=== PATIENT | male | born 1940 | race Caucasian/White ===

== ENCOUNTER 2018-02-27 17:04 | Inpatient (IN) | payer MEDICARE, OTHER ==
[~2018-02-27] VITALS: Ht 167.6 cm; Wt 102.5 kg
[~2018-02-27 17:04] MED LIST: ASPIRIN 81M81 MG/TA2 PO; CEPHALEXIN500 M1 PO; CIPRO 500MG TA500 MG PO; CREON 60000 U-11 ECC PO; IBU400 MG PO; PRILOSEC 20MG20 MG PO; PROZAC 10MG10 MG PO; TOPROL XL 50MG50 MG PO
[2018-02-27] MEDS ORDERED: THE MEDICINE S200 M2 PO (17:45)
[2018-02-27] MEDS ORDERED: OMEGA-3 1000 MG1 CAP PO (17:45)
[2018-02-27 18:15] LABS: ALBUMIN 4.1 gm/dL (3.5-5.0); BILIRUBIN,TOTAL 1.5 mg/dL (0.0-1.0); CREATININE, serum 1.33 mg/dL (0.66-1.25); POTASSIUM 3.7 mmol/L (3.4-5.0); TOTAL PROTEIN 7.3 gm/dL (6.4-8.2)
[2018-02-27 18:24] LABS: BASO % 0.4 % (0.0-2.0); GRAN # 8.8 (1.4-6.5); GRAN % 80.4 % (42.2-75.2); HEMATOCRIT 40.2 % (42.0-52.0); HEMOGLOBIN 13.4 g/dl (13.5-18.0); LYMPH # 0.8 (1.2-3.4); LYMPH % 7.6 % (20.0-51.0); MEAN CELL VOLUME 95 fl (80.0-100.0); MEAN CORPUSCULAR HEMOGLOBIN 32 pg (27.0-31.0); MEAN CORPUSCULAR HGB CONC 33 g/dl (33.0-37.0); MEAN PLATELET VOLUME 9.6 fl (7.4-10.4); MONO # 1.2 (0.1-0.6); MONO % 11.1 % (1.7-9.3); PLATELET COUNT 132 K/mm3 (130-400); RED BLOOD COUNT 4.24 M/mm3 (4.20-5.60); REDCELL DISTRIBUTION WIDTH-CV 12.9 % (11.5-14.5)
[2018-02-27 18:24] LABS: TROPONIN-I 0.038 ng/mL (0.000-0.034)
[2018-02-27 18:53] LABS: COLLECTION METHOD CLEAN CATCH
[2018-02-27 19:30] LABS: MUCOUS Present /lpf; PH 5 (5-8); SQUAMOUS EPITHELIAL None Seen /hpf; URINE APPEARANCE Hazy; URINE BACTERIA Rare /hpf; URINE BILIRUBIN Negative (NEGATIVE); URINE BLOOD 2+ (NEGATIVE); URINE COLOR Yellow; URINE GLUCOSE Negative (NEGATIVE); URINE KETONE Negative (NEGATIVE); URINE LEUKOCYTE ESTERASE 3+ (NEGATIVE); URINE NITRATE Negative (NEGATIVE); URINE PROTEIN(semi-quant) 1+ (NEGATIVE); URINE UROBILINOGEN Negative (NEGATIVE)
[2018-02-27 21:25] VITALS: BP 146/36; PULSE 78; TEMP 101.1
[2018-02-28] VITALS (12 sets, daily range): BP systolic 128–148; BP diastolic 48–76; PULSE 60–89; TEMP 98.8–103
[2018-02-28 06:29] LABS: BASO % 0.3 % (0.0-2.0); GRAN # 7.1 (1.4-6.5); HEMOGLOBIN 11.5 g/dl (13.5-18.0); LYMPH # 0.7 (1.2-3.4); LYMPH % 7.5 % (20.0-51.0); MEAN CELL VOLUME 94 fl (80.0-100.0); MEAN CORPUSCULAR HEMOGLOBIN 32 pg (27.0-31.0); MEAN CORPUSCULAR HGB CONC 34 g/dl (33.0-37.0); MEAN PLATELET VOLUME 10.5 fl (7.4-10.4); MONO # 1.2 (0.1-0.6); MONO % 13.5 % (1.7-9.3); PLATELET COUNT 123 K/mm3 (130-400); REDCELL DISTRIBUTION WIDTH-CV 12.9 % (11.5-14.5)
[2018-02-28 06:40] LABS: CREATININE, serum 1.1 mg/dL (0.66-1.25); POTASSIUM 3.7 mmol/L (3.4-5.0)
[2018-02-28 06:42] LABS: HEMATOCRIT 33.9 % (42.0-52.0)
[2018-03-01] VITALS (12 sets, daily range): BP systolic 118–154; BP diastolic 41–78; PULSE 73–120; TEMP 98.5–101.7
[2018-03-01 07:07] LABS: BASO % 0.5 % (0.0-2.0); EOS % 0.3 % (0-4.0); GRAN # 6.6 (1.4-6.5); HEMOGLOBIN 11.5 g/dl (13.5-18.0); LYMPH # 0.9 (1.2-3.4); LYMPH % 10.9 % (20.0-51.0); MEAN CELL VOLUME 94 fl (80.0-100.0); MEAN CORPUSCULAR HEMOGLOBIN 32 pg (27.0-31.0); MEAN CORPUSCULAR HGB CONC 34 g/dl (33.0-37.0); MEAN PLATELET VOLUME 10.3 fl (7.4-10.4); MONO # 0.9 (0.1-0.6); MONO % 10.8 % (1.7-9.3); PLATELET COUNT 110 K/mm3 (130-400); RED BLOOD COUNT 3.64 M/mm3 (4.20-5.60); REDCELL DISTRIBUTION WIDTH-CV 12.9 % (11.5-14.5)
[2018-03-01 07:08] LABS: HEMATOCRIT 34.1 % (42.0-52.0)
[2018-03-01 07:20] LABS: CALCIUM 8.2 mg/dL (8.4-10.2); CREATININE, serum 0.92 mg/dL (0.66-1.25); POTASSIUM 3.8 mmol/L (3.4-5.0)
[2018-03-01 07:47] LABS: TROPONIN-I 0.073 ng/mL (0.000-0.034)
[2018-03-01 08:50] LABS: PARTIAL THROMBOPLASTIN TIME 26.6 SECONDS (26.0-37.0)
[2018-03-02 00:27] VITALS: BP 163/69; PULSE 86; TEMP 99.2
[2018-03-02 04:01] VITALS: BP 154/64; PULSE 86; TEMP 97.9
[2018-03-02 06:17] LABS: BASO % 0.5 % (0.0-2.0); EOS # 0.1 (0.0-0.7); EOS % 0.9 % (0-4.0); GRAN # 6.9 (1.4-6.5); GRAN % 79.6 % (42.2-75.2); HEMOGLOBIN 11.5 g/dl (13.5-18.0); LYMPH # 0.8 (1.2-3.4); LYMPH % 9.2 % (20.0-51.0); MEAN CELL VOLUME 94 fl (80.0-100.0); MEAN CORPUSCULAR HEMOGLOBIN 32 pg (27.0-31.0); MEAN CORPUSCULAR HGB CONC 34 g/dl (33.0-37.0); MONO # 0.8 (0.1-0.6); MONO % 9.3 % (1.7-9.3); PLATELET COUNT 130 K/mm3 (130-400); RED BLOOD COUNT 3.64 M/mm3 (4.20-5.60)
[2018-03-02 06:24] LABS: HEMATOCRIT 34.2 % (42.0-52.0)
[2018-03-02 06:35] LABS: CALCIUM 8.2 mg/dL (8.4-10.2); CREATININE, serum 0.89 mg/dL (0.66-1.25); POTASSIUM 3.7 mmol/L (3.4-5.0)
[2018-03-02 08:38] VITALS: BP 162/87; PULSE 108; TEMP 98.8
[2018-03-02 10:32] LABS: COLLECTION METHOD CLEAN CATCH
[2018-03-02 10:47] LABS: MUCOUS Present /lpf; PH 5 (5-8); SQUAMOUS EPITHELIAL None Seen /hpf; URINE APPEARANCE Clear; URINE BACTERIA Rare /hpf; URINE BILIRUBIN Negative (NEGATIVE); URINE BLOOD 2+ (NEGATIVE); URINE COLOR Yellow; URINE GLUCOSE Negative (NEGATIVE); URINE KETONE Negative (NEGATIVE); URINE LEUKOCYTE ESTERASE Negative (NEGATIVE); URINE NITRATE Negative (NEGATIVE); URINE PROTEIN(semi-quant) Negative (NEGATIVE)
[2018-03-02 11:57] VITALS: BP 163/80; PULSE 93; TEMP 98.5
[2018-03-02 16:25] VITALS: BP 140/62; PULSE 89
== END 2018-03-02 16:51 | disposition short-term general hospital (02) | DRG 871 ==
LOC: COL.ER 17:04 → MEDICAL 19:50
PROVIDERS: Emergency Medicine; Hospitalist; Nurse Practitioner; Physician Assistant
DX: A41.9 Sepsis, unspecified organism (principal); I21.A1 Myocardial infarction type 2; J81.0 Acute pulmonary edema; N10 Acute pyelonephritis; N17.9 Acute kidney failure, unspecified; E87.1 Hypo-osmolality and hyponatremia; J44.9 Chronic obstructive pulmonary disease, unspecified; Z85.46 Personal history of malignant neoplasm of prostate; Z87.891 Personal history of nicotine dependence; B96.20 Unspecified Escherichia coli [E. coli] as the cause of diseases classified elsewhere; E78.5 Hyperlipidemia, unspecified; I48.91 Unspecified atrial fibrillation; D69.6 Thrombocytopenia, unspecified
CPT/HCPCS: 99223-AI; 99233-AI; J0696; J0744; J1160; J1644; J1940; J2405; J2920; J7030; Q9967

== ENCOUNTER 2018-11-10 08:11 | Outpatient (RCR) | payer MEDICARE, OTHER ==
[~2018-11-10] VITALS: Ht 167.6 cm; Wt 100.0 kg
[~2018-11-10 08:11] MED LIST changes: +OMEGA-3 1000 MG1 CAP PO; +THE MEDICINE S200 M2 PO
[2018-11-10] MEDS ORDERED: PROAIR HFA0.09 MG/AC IH (08:39)
[2018-11-10] MEDS ORDERED: ELIQUIS 5MG PO (08:40)
[2018-11-10] MEDS ORDERED: NORVASC 5MG5 MG/TAB PO (08:40)
[2018-11-10] MEDS ORDERED: VITAMIN D 1001000 IU PO (08:41)
[2018-11-10] MEDS ORDERED: B-121000 MCG PO (08:42)
[2018-11-10] MEDS ORDERED: INVANZ INJ1 G/VIAL IV (08:43)
[2018-11-10] MEDS ORDERED: NORCO 325 MG-51 TAB PO (08:44)
[2018-11-10] MEDS ORDERED: FLORAJEN A20 Billion PO (08:44)
[2018-11-10] MEDS ORDERED: TOPROL XL 50MG50 MG PO (08:45)
[2018-11-10] MEDS ORDERED: EPA FISH OIL1 SGL PO (08:46)
[2018-11-10] MEDS ORDERED: PANCREAZE 437501 ECC PO (08:46)
[2018-11-10] MEDS ORDERED: PROTONIX 40MG T40 MG PO (08:47)
[2018-11-10] MEDS ORDERED: PRAVACHOL 40MG40 MG PO (08:49)
[2018-11-10] MEDS ORDERED: PREDNISONE20 MG PO (08:52)
[2018-11-10] MEDS ORDERED: TYLENOL 500MG500 MG PO (08:53)
[2018-11-10 09:03] VITALS: BP 141/48; PULSE 52; TEMP 98.4
[2018-11-11 09:07] VITALS: BP 108/68; PULSE 51; TEMP 97.4
[2018-11-12 08:19] VITALS: BP 151/52; PULSE 43; TEMP 97.6
[2018-11-13 08:19] VITALS: BP 114/41; PULSE 53; TEMP 97.6
[2018-11-14 08:25] VITALS: BP 114/41; PULSE 54; TEMP 97.6
[2018-11-15 08:12] VITALS: BP 136/50; PULSE 46; TEMP 98.6
--- NOTE | 2018-11-15 08:45 | NUR ---
Midline intact left upper arm. with sterile technique left upper arm midline dressing change done with insertion site cleansed with chloraprep x 1, chlorhexidine impregnated disk applied, unable to apply stat lock due to power wand, skin prep, and tegaderm applied. site secured with steri-strip. no signs or symptoms of IV complications noted. no concerns voiced. will continue to monitor.
[2018-11-16 08:25] VITALS: BP 108/45; PULSE 55; TEMP 98.1
[2018-11-16 08:30] LABS: HEMATOCRIT 41.4 % (42.0-52.0); HEMOGLOBIN 13.7 g/dl (13.5-18.0); MEAN CELL VOLUME 95 fl (80.0-100.0); MEAN CORPUSCULAR HEMOGLOBIN 31 pg (27.0-31.0); MEAN CORPUSCULAR HGB CONC 33 g/dl (33.0-37.0); MEAN PLATELET VOLUME 8.9 fl (7.4-10.4); PLATELET COUNT 380 K/mm3 (130-400); RED BLOOD COUNT 4.37 M/mm3 (4.20-5.60); REDCELL DISTRIBUTION WIDTH-CV 13.2 % (11.5-14.5)
[2018-11-16 08:40] LABS: ALBUMIN 3.4 gm/dL (3.5-5.0); BILIRUBIN,TOTAL 0.6 mg/dL (0.0-1.0); CALCIUM 9.3 mg/dL (8.4-10.2); CREATININE, serum 1.16 (0.66-1.25); TOTAL PROTEIN 6.2 gm/dL (6.4-8.2)
[2018-11-17 08:45] VITALS: BP 110/46; PULSE 59; TEMP 98
[2018-11-18 08:49] VITALS: BP 114/47; PULSE 54; TEMP 97.9
--- NOTE | 2018-11-18 09:50 | NUR ---
No bleeding observed for 20 min after midline removal. Pt denies complaint. Pt discharged per w/c with .
== END 2018-11-18 10:06 | disposition home or self-care (01) ==
LOC: EUO 11-11 08:00
PROVIDERS: Internal Medicine
DX: N12 Tubulo-interstitial nephritis, not specified as acute or chronic (principal); R78.81 Bacteremia
CPT/HCPCS: J1335